=== PATIENT | female | born 1995 | race Caucasian/White ===

== ENCOUNTER → 2021-01-01 08:09 | Outpatient (CLI) | payer BC, SELFPAY ==
--- NOTE | 2021-01-01 | DI.US.S_ITS ---
PROCEDURE: US PELVIC COMPLETE INDICATIONS: EXCESSIVE AND FREQUENT IRREGULAR MENSTRUATION TECHNIQUE: Real-time scanning was performed of the pelvic organs, with image documentation. Additional endovaginal scanning was necessary due to incomplete visualization of the adnexal and endometrial structures by transabdominal scanning. COMPARISON: [facility] Ul[facility]ound, US, PELVIC SONOGRAM, 12/13/2012, 15:46. FINDINGS: This study is limited by body habitus and overlying bowel gas. Uterus: Uterus is normal in size at 6.3 x 3.7 x 2.7 cm. The endometrium measures 7 mm in combined thickness. Incidental note is made of nabothian cysts. Ovaries: Neither ovary is well seen. Within the right adnexa, there is a tubular structure that measures 7.4 x 5.5 x 2.3 cm. Other: No pathologic free abdominal or pelvic fluid. At the end of the examination, there is apparent fluid along the urethra, as on images 36 and 37. IMPRESSION: Apparent right-sided hydrosalpinx. Limited study, without either ovary well seen. Dictated by: Jesse Cotto M.D. on 01/01/2021 at 9:22 Approved by: Jesse Cotto M.D. on 01/01/2021 at 9:24
== END ==
PROVIDERS: PCP Nurse Practitioner Obstetrics & Gynecology; Referring Provider Nurse Practitioner Obstetrics & Gynecology; Visit Provider Nurse Practitioner Obstetrics & Gynecology
DX: N92.1 Excessive and frequent menstruation with irregular cycle (principal); N88.8 Other specified noninflammatory disorders of cervix uteri
CPT/HCPCS: 76830; 76856